=== PATIENT | male | born 1995 | race Caucasian/White ===

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

== ENCOUNTER 2017-10-27 01:19 | Emergency (ER) | payer BC, OTHER ==
[~2017-10-27] VITALS: Ht 180.3 cm; Wt 86.0 kg
[~2017-10-27 01:19] MED LIST changes: -LIDOCAINE HCL 2% 2 ML VIAL (20MG/ML) ONE; -MIDAZOLAM HCL 1 MG/ML 2ML VIAL ONE; -ONDANSETRON INJ 2 MG/ML 2 ML VIAL ONE; -PROPOFOL IV EMULSION 10 MG/ML 20 ML VIAL IV ONE; -SODIUM CHLORIDE 0.9% 500ML 500 ML IV ONE
[2017-10-27 01:23] VITALS: TEMP 37.2; Ht 180.3 cm; Wt 86.0 kg
[2017-10-27] MEDS ORDERED: ACETAMINOPHEN 500 MG TAB PO STA (01:35)
[2017-10-27] MEDS ORDERED: IBUPROFEN 600 MG TAB PO STA (01:35)
[2017-10-27] MEDS ORDERED: OMEP40CA41 PO (02:14)
[2017-10-27 04:09] VITALS: BP 154/57; PULSE 72; O2SAT 98
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
== END 2017-10-27 04:14 | disposition home or self-care (01) ==
LOC: C.EDB 01:20 → C.EDA 04:14
DX: T14.8XXA Other injury of unspecified body region, initial encounter (principal); V86.52XA Driver of snowmobile injured in nontraffic accident, initial encounter; Y93.29 Activity, other involving ice and snow; Y99.8 Other external cause status